=== PATIENT | female | born 1955 | race Caucasian/White ===

== ENCOUNTER → 2024-04-06 | Outpatient (CLI) | payer MEDICARE, OTHER ==
[~2024-04-06] MED LIST: CEPHALEXIN500 M1 PO; CRESTOR5 MG PO; DOXYCYCLINE 10100 MG PO; GLUCOPHAGE1000 MG PO; LOVAZA1 GM; LOVAZA1 GM PO; PRAVACHOL 20MG20 MG PO; VICTOZA6 MG/ML SC; WELLBUTRIN XL150 MG PO; XYAL5 MG PO
== END ==
LOC: COL.RAD 09:38
DX: M71.21 Synovial cyst of popliteal space [Baker], right knee (principal)